=== PATIENT | male | born 2000 | race Two or more races ===

== ENCOUNTER 2025-04-21 10:42 | Emergency (ER) | payer MEDICAID, SELFPAY ==
[2025-04-21 10:55] VITALS: BP 133/78; PULSE 86; RESP 16; TEMP 37.1; O2SAT 97; BMI 20.3
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
[2025-04-21] MEDS: DIPHTH,PERTUSS(ACELL),TET VAC 0.5 ML SYR- ADULT IMi (13:18)
[2025-04-21 13:37] LABS: Basophils # (Auto) 0.0 Thou/mm3 (0.0-0.2); Basophils % (Auto) 0 % (0-2.5); Eosinophils # (Auto) 0.0 Thou/mm3 (0.0-0.5); Eosinophils % (Auto) 0 % (0-10); Hematocrit 41.4 % (41.0-53.0); Hemoglobin 14.6 g/dL (13.5-16.0); Immature Granulocytes Auto 0.05 Thou/mm3 (0.00-0.00); Lymphocytes # (Auto) 0.9 Thou/mm3 (1.0-4.8); Lymphocytes % (Auto) 6 % (10-50); Mean Corpuscular HGB Conc 35.3 g/dl (31.0-37.0); Mean Corpuscular Hemoglobin 31.2 pg (25.0-35.0); Mean Corpuscular Volume 89 fL (80-100); Monocytes # (Auto) 1.0 Thou/mm3 (0.0-0.8); Monocytes % (Auto) 7 % (0-12); Neutrophils # (Auto) 13.0 Thou/mm3 (1.8-7.7); Neutrophils % (Auto) 87 % (37-80); Nucleated Red Blood Cell # 0.00 Thou/mm3 (0.00-0.00); Nucleated Red Blood Cell % 0 /100 WBC (0); Platelet Count 278 Thou/mm3 (140-440); RDW Standard Deviation 37.9 fL (35.1-43.9); Red Blood Count 4.68 Miln/mm3 (4.50-5.90); White Blood Count 15.0 Thou/mm3 (3.8-10.6)
[2025-04-21 13:54] LABS: Alanine Aminotransferase 12 U/L (10-49); Albumin, Serum 5.3 gm/dL (3.5-5.0); Albumin/Globulin Ratio 1.9 (1.2-2.2); Alkaline Phosphatase 75 U/L (46-116); Anion Gap 13 (7-16); Aspartate Amino Transferase 38 U/L (0-34); BUN/Creatinine Ratio 13 Ratio (12-20); Bilirubin,Total 1.0 mg/dL (0.3-1.2); Blood Urea Nitrogen 10 mg/dL (9-23); Calcium 9.4 mg/dL (8.3-10.6); Calcium (Corrected) 9.4 mg/dL (8.5-10.1); Carbon Dioxide 25.4 mMol/L (20.0-31.0); Chloride 102 mMol/L (98-107); Creatinine (Component) 0.8 mg/dL (0.6-1.3); Estimated Creatinine Clearance 134.7 mL/min (>60); Globulin 2.8 gm/dL (2.3-3.5); Glucose 114 mg/dL (74-106); Osmolality,Calculated 279 (275-295); Potassium 4.5 mMol/L (3.4-5.1); Sodium 140 mMol/L (136-145); Total Protein 8.1 gm/dL (5.7-8.2); eGFR > 60 See Note
--- NOTE | 2025-04-21 15:38 | PC.CM ---
Addendum entered by Stacia Ellington RN 04/21/25 18:18: I took the CD to Marissa charge nurse in ED. She states she will take care of faxing over the paperwork to the Oral Maxillofacial surgery services in [facility]. Addendum entered by Stacia Ellington RN 04/21/25 17:07: I spoke to Thaddeus and she states [facility] will have patient follow up as outpatient. She took the information and I will make a CD for patient and take it to Marissa. Original Note: 1515 spoke to Anali at [facility] and initiated a transfer. I faxed information and Marissa charge nurse pushed over information.
--- NOTE | 2025-04-21 16:42 | PC.NURSE ---
SPOKE WITH [facility]. PT IS TO FOLLOW UP OUTPATIENT TOMORROW AT [facility] IN [place]. DR LONNIE ALMONTE. CLINIC ADDRESS IS [address] [place] [address]. NUMBER TO CALL .
--- NOTE | 2025-04-21 17:06 | PC.CC ---
Received call from Marissa the ED charge nurse, she informed me that [facility] called with a plan for this patient. According to Marissa [facility] accepted for outpatient tomorrow in [address] [facility] [place] [address] Was informed by Marissa that the [facility] clinic will call the patient in the morning. Clinic phone number is [phone] to see Roney Coyle.
[2025-04-21 17:30] VITALS: BP 119/75; PULSE 85; RESP 17; TEMP 36.7; O2SAT 98
== END 2025-04-21 17:38 | disposition home or self-care (01) ==
PROVIDERS: Registered Nurse General Practice; Emergency Provider Family Medicine
DX: S02.652A Fracture of angle of left mandible, initial encounter for closed fracture (principal); S02.651A Fracture of angle of right mandible, initial encounter for closed fracture; S19.9XXA Unspecified injury of neck, initial encounter; S00.83XA Contusion of other part of head, initial encounter; Y04.0XXA Assault by unarmed brawl or fight, initial encounter; Z23 Encounter for immunization
CPT/HCPCS: 36415; 70450; 70486; 70498; 72125; 80053; 85025; 90471; 90715; 99283; A4649; Q9967